=== PATIENT | male | born 1980 | race Caucasian/White ===

== ENCOUNTER 2023-07-07 20:07 | Emergency (ER) | payer OTHER ==
[~2023-07-07] VITALS: Ht 180.3 cm; Wt 122.5 kg
[2023-07-07] MEDS ORDERED: KETOROLAC TROMETHAMINE INJ 30 MG/ML VIAL ONE (21:06)
[2023-07-07] MEDS ORDERED: LIDOCAINE 5% (PATCH) 1 EA PATCH TP ONE (21:06)
[2023-07-07] MEDS ORDERED: ACETAMINOPHEN 325 MG TABLET ONE (21:07)
[2023-07-07] MEDS: ACETAMINOPHEN 325 MG TABLET PO ONE (21:07)
[2023-07-07] MEDS: KETOROLAC TROMETHAMINE INJ 30 MG/ML VIAL IM ONE (21:07)
[2023-07-07] MEDS: LIDOCAINE 5% (PATCH) 1 EA PATCH TP SCH (21:08)
[2023-07-07] MEDS ORDERED: IBUP-1955 PO (21:58)
[2023-07-07] MEDS ORDERED: LIDO30AD10 TP (21:58)
[2023-07-07] MEDS ORDERED: ACET325C7 PO (21:58)
[2023-07-07 22:10] VITALS: BP 135/89; TEMP 98.8; O2SAT 100
== END 2023-07-07 22:24 | disposition home or self-care (01) ==
LOC: ER 20:14
DX: M54.50 Low back pain, unspecified (principal); F31.9 Bipolar disorder, unspecified; F20.9 Schizophrenia, unspecified
CPT/HCPCS: 99283; 96372; J1885